=== PATIENT | male | born 1940 | race Caucasian/White ===

== ENCOUNTER 2017-09-27 11:25 | Inpatient (IN) | payer OTHER ==
[~2017-09-27] VITALS: Ht 180.3 cm; Wt 69.5 kg
[~2017-09-27 11:25] MED LIST: ASPIRIN EC81 M1 PO; ATORVASTATIN CA40 MG PO; PANTOPRAZOLE SO40 MG PO; PLAVIX 75MG TAB75 MG PO; SIMVASTATIN40 MG PO
--- NOTE | 2017-09-27 12:12 | ED GENERAL ADULT ---
History of Present Illness General Chief Complaint: General Adult Stated Complaint: RECTAL BLEED Source: patient, old records Exam Limitations: no limitations Vital Signs & Intake/Output Vital Signs & Intake/Output Vital Signs Date Time Temp Pulse Resp B/P B/P Pulse O2 O2 Flow FiO2 Mean Ox Delivery Rate 09/27 1538 98.5 55 20 126/70 98 Room Air 09/27 1428 97.6 49 15 146/65 98 Room Air Room Air 09/27 1226 Room Air Room Air 09/27 1137 96.8 61 18 106/67 97 Room Air Allergies Coded Allergies: amoxicillin (From AUGMENTIN) (Mild, RASH 09/09/15) clavulanic acid (From AUGMENTIN) (Mild, RASH 09/09/15) Reconcile Medications Aspirin (Ecotrin*) 81 MG TABLET.DR 1 TAB PO DAILY HEART HEALTH (Reported) Atorvastatin Calcium 40 MG TABLET 1 TAB PO DAILY CHOLESTEROL (Reported) Clopidogrel Bisulfate (Plavix) 75 MG TABLET 1 TAB PO DAILY BLOOD THINNER ( Reported) Metoprolol Tartrate 25 MG TABLET 1 TAB PO DAILY HEART (Reported) Triage Note: RECEIVED 77 YO MALE SENT TO ED BY DR BROOKE FOR BRIGHT RED BLEEDING PER RECTUM THIS AM. ACCORDING TO REPORT, PT WENT TO THE BATHROOM THIS AND AND FILLED THE TOILET WITH BRIGHT RED BLOOD. PT DID HAVE SUBSEQUENT BOWEL MOVEMENTS THAT WERE [place] IN COLOR. PT SEEN DR BROOKE THIS AND AND WAS QUIAC POSITIVE. PT CURRENTLY ON PLAVIS AND ASA. PT DENIES ABDOMINAL PAIN, WEAKNESS OR DIZZINESS. 5 Triage Nurses Notes Reviewed? yes HPI: Patient woke up at 4:00 this morning feeling like it was bowels. When the patient went to the bathroom just dark red blood came out. No abdominal pain. Patient then went back to bed and then this morning he called his primary care physician who told him to stop his aspirin and Plavix and to come to the emergency department for evaluation. Patient denies any lightheadedness. There is no abdominal pain or abdominal cramping. There is no dysuria. Patient comes in for evaluation. Patient had a colonoscopy in 2013 which showed diverticulosis as well as radiation proctitis. Past History Travel History Traveled to [place] past 21 day No Medical History Any Pertinent Medical History? 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 No Review of Systems Review of Systems Constitutional: Reports: no symptoms. EENTM: Reports: no symptoms. Respiratory: Reports: no symptoms. Cardiovascular: Reports: no symptoms. GI: Reports: see HPI. Genitourinary: Reports: no symptoms. Musculoskeletal: Reports: no symptoms. Skin: Reports: no symptoms. Neurological/Psychological: Reports: no symptoms. Hematologic/Endocrine: Reports: no symptoms. Immunologic/Allergic: Reports: no symptoms. All Other Systems: Reviewed and Negative Physical Exam Physical Exam General Appearance: well developed/nourished, alert, awake Head: atraumatic, normal appearance Eyes: Bilateral: PERRL, EOMI. Ears, Nose, Throat: normal pharynx, normal ENT inspection, hearing grossly normal Neck: normal inspection, supple, full range of motion Respiratory: normal breath sounds, chest non-tender, no respiratory distress, lungs clear Cardiovascular: regular rate/rhythm, normal peripheral pulses Gastrointestinal: normal bowel sounds, soft, non-tender, no organomegaly Rectal: DARK RED BLOOD ON FINGERTIP Back: normal inspection, normal range of motion Extremities: normal inspection, normal capillary refill, normal range of motion, no edema Neurologic/Psych: no motor/sensory deficits, awake, alert, oriented x 3, normal gait, normal mood/affect Skin: intact, normal color, warm/dry Core Measures ACS in differential dx? No CVA/TIA Diagnosis: No Sepsis Present: No Sepsis Focused Exam Completed? No Progress Differential Diagnoses I considered the following diagnoses in my evaluation of the patient: [LOWER GI] Plan of Care: Orders Procedure Date/time Status CBC WITHOUT DIFFERENTIAL 09/28 0600 Active Clear Liquid Diet 09/27 D Active Weight 09/27 1552 Active Vital Signs 09/27 1552 Active Teach/Educate 09/27 155 Active Pain Treatment and Response 09/27 155 Active Nutritional Intake, Monitor 09/27 155 Active Isolation 09/27 155 Active Intake & Output 09/27 155 Active Patient Care Conference 09/27 155 Active Activity/Ambulation 09/27 155 Active Pathway - chart 09/27 1518 Active Patient Data 09/27 1518 Active Code Status 09/27 1518 Active Patient Data 09/27 1359 Active ED Holding Orders 09/27 1358 Active Admit to inpatient 09/27 1358 Active Vital Signs 09/27 1358 Active Code Status 09/27 1358 Complete Intake & Output 09/27 1226 Active MISTAKE 09/27 1212 Active TROPONIN LEVEL 09/27 1212 Complete PARTIAL THROMBOPLASTIN TIME 09/27 1212 Complete PROTHROMBIN TIME 09/27 1212 Complete COMPREHENSIVE METABOLIC PANEL 09/27 1212 Complete CBC WITHOUT DIFFERENTIAL 09/27 1212 Complete EKG 09/27 1212 Active TYPE & SCREEN (NOT X-MATCH) 09/27 1212 Complete VTE Mechanical Prophylaxis 09/27 UNK Active Current Medications Sig/Latonya Start time Last Medication Dose Stop Time Status Admin Acetaminophen 325 MG Q6P PRN 09/27 1515 AC (Tylenol) Laboratory Tests 09/27/17 1223: Anion Gap 7, Estimated GFR > 60, BUN/Creatinine Ratio 21.3, Glucose 80, Calcium 9.4, Total Bilirubin 0.8, AST 25, ALT 30, Alkaline Phosphatase 65, Troponin I < 0.01, Total Protein 6.2 L, Albumin 3.8, Globulin 2.4, Albumin/Globulin Ratio 1.6, PT 12.0, INR 1.10, APTT 27, CBC w Diff NO MAN DIFF REQ, RBC 4.98, MCV 86.2, MCH 29.9, MCHC 34.7, RDW 14.1, MPV 8.9, Gran % 50.6, Lymphocytes % 28.2, Monocytes % 11.5 H, Eosinophils % 9.2 H, Basophils % 0.5, Absolute Granulocytes 2.8, Absolute Lymphocytes 1.5, Absolute Monocytes 0.6, Absolute Eosinophils 0.5, Absolute Basophils 0 Initial ED EKG: NSR, SR WITH LAFB, NOISCHEMICCHANGES Departure Departure Disposition: STILL A PATIENT Condition: Stable Clinical Impression Primary Impression: Lower GI bleed Referrals: Fer Jean MD (PCP/Family) Departure Forms: Customer Survey General Discharge Information Admission Note Spoke With: Sayra Davenport MD Documentation of Exam: Documentation of any treatments & extenuating circumstances including Concerns Regarding Discharge (functional status, medication knowledge or non-compliance, living conditions, etc.) that warrant an admission rather than observation: [ Clear liquids only, GI consultation, serial hematocrits, if he begins to have active bleeding he will need a colonoscopy plus or minus interventional radiology.] Critical Care Note Critical Care Note Critical Care Time: non-applicable
[2017-09-27] MEDS ORDERED: METOPROLOL TART25 M1 PO (12:28)
[2017-09-27] MEDS ORDERED: PLAVIX75 M1 PO (12:30)
[2017-09-27] MEDS ORDERED: ATORVASTATIN CA40 M1 PO (12:30)
[2017-09-27 12:41] LABS: ABSOLUTE BASOPHIL COUNT 0 /CUMM (0.0-0.2); ABSOLUTE EOSINOPHIL COUNT 0.5 /CUMM (0.0-0.7); ABSOLUTE GRANULOCYTE CT 2.8 /CUMM (1.4-6.5); ABSOLUTE LYMPH COUNT 1.5 /CUMM (1.2-3.4); ABSOLUTE MONOCYTE COUNT 0.6 /CUMM (0.10-0.60); BASOPHIL % 0.5 % (0.0-2.0); EOSINOPHIL % 9.2 % (0-5); GRANULOCYTE % 50.6 % (42.2-75.2); MEAN CORPUSCULAR HGB 29.9 PG (27.0-31.0); MEAN CORPUSCULAR HGB CONC 34.7 G/DL (33.0-37.0); MEAN CORPUSCULAR VOLUME 86.2 FL (80.0-94.0); MEAN PLATELET VOLUME 8.9 FL (7.4-10.4); PLATELET COUNT 178 /CUMM (130-400); RBC DISTRIBUTION WIDTH 14.1 % (11.5-14.5); RED BLOOD CELL CT 4.98 /CUMM (4.70-6.10); WHITE BLOOD CELL COUNT 5.5 /CUMM (4.8-10.8)
[2017-09-27 12:46] LABS: PTT 27 SEC (25-37)
--- NOTE | 2017-09-27 14:12 | History & Physical ---
Kraig ESETVEZ,[facility] 09/27/17 1412: General Information and HPI MD Statement: I have seen and personally examined PHAM FOURNIER and documented this H&P. The patient is a 77 year old M who presented with a patient stated chief complaint of []. Source of Information: patient Exam Limitations: no limitations History of Present Illness: The patient is 77-year-old gentleman with past medical history hyperlipidemia, prior history of esophagitis, prostate cancer, GERD, TIA in 2015. [facility] presented [facility] with complaint of Bright great blood per rectum. The patient was in usual state of mental this morning around 4 AM he got up to use the bathroom to urinate and had a bloody bowel movement. Patient described it as bright red blood mixed with small pallets of stool. Then again at 6 AM in the morning he had another episode. He saw his PCP in the morning where he has guaiac-positive. The PCP asked him to hold his aspirin and Plavix and come to [facility] ED for further evaluation. The patient has been evaluated by Dr. Love multiple times in the past. As per patient he had an endoscopy and colonoscopy done last year and as per his information it was within normal limits. He denies any fevers chills, reports no shortness of breath chest pain abdominal pain nausea vomiting. No episode of blood in vomit. There is no history of colon cancer in the family. Patient denies any night sweats however does report a 5 pound weight loss over the past 2 years. However denies any recent weight loss. Patient does not have any sick contacts. He does not report any dizziness or lightheadedness at present. Patient also gives a history of what appears to be angiography done by Dr. Michelle reyes. However he is unsure. He reported that on aspirin and Plavix were started after the incident of TIA in 2015 Allergies/Medications Allergies: Coded Allergies: amoxicillin (From AUGMENTIN) (Mild, RASH 09/09/15) clavulanic acid (From AUGMENTIN) (Mild, RASH 09/09/15) Home Med list Aspirin (Ecotrin*) 81 MG TABLET. 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 Home Who Do You Live With? spouse Services at Home: None Primary Language: Luxembourgish Smoking Status: Former Smoker ETOH Use: denies use Illicit Drug Use: denies illicit drug use Living Will? yes Functional Ability ADLs Independent: dressing, eating, toileting, bathing. Ambulation: independent IADLs Independent: shopping, housework, finances, food prep, telephone, transportation , medication admin. Review of Systems Review of Systems Constitutional: Reports: see HPI. EENTM: Reports: no symptoms. Exam & Diagnostic Data Last 24 Hrs of Vital Signs/I&O Vital Signs Date Time Temp Pulse Resp B/P B/P Pulse O2 O2 Flow FiO2 Mean Ox Delivery Rate 09/27 1538 98.5 55 20 126/70 98 Room Air 09/27 1428 97.6 49 15 146/65 98 Room Air Room Air 09/27 1226 Room Air Room Air 09/27 1137 96.8 61 18 106/67 97 Room Air Intake & Output 09/27 1600 09/27 0800 09/27 0000 Intake Total 0 Output Total Balance 0 Intake, Oral 0 Patient 163 lb Weight Weight Reported by Patient Measurement Method Physical Exam General Appearance Alert, Oriented X3, Cooperative Skin No Rashes Skin Temp/Moisture Exam: Warm/Dry HEENT Atraumatic Cardiovascular Normal S1, Normal S2, No Murmurs Lungs Clear to Auscultation, Normal Air Movement Abdomen Normal Bowel Sounds, Soft, No Tenderness, No Hepatospenomegaly, No Masses Neurological Normal Speech, Strength at 5/5 X4 Ext, Normal Tone, Cranial Nerves 3-12 NL, Reflexes 2+ Extremities No Edema Vascular Normal Pulses Last 24 Hrs of Labs/Aubrey: Laboratory Tests 09/27/17 1223: Anion Gap 7, Estimated GFR > 60, BUN/Creatinine Ratio 21.3, Glucose 80, Calcium 9.4, Total Bilirubin 0.8, AST 25, ALT 30, Alkaline Phosphatase 65, Troponin I < 0.01, Total Protein 6.2 L, Albumin 3.8, Globulin 2.4, Albumin/Globulin Ratio 1.6, PT 12.0, INR 1.10, APTT 27, CBC w Diff NO MAN DIFF REQ, RBC 4.98, MCV 86.2, MCH 29.9, MCHC 34.7, RDW 14.1, MPV 8.9, Gran % 50.6, Lymphocytes % 28.2, Monocytes % 11.5 H, Eosinophils % 9.2 H, Basophils % 0.5, Absolute Granulocytes 2.8, Absolute Lymphocytes 1.5, Absolute Monocytes 0.6, Absolute Eosinophils 0.5, Absolute Basophils 0 Diagnostic Data EKG Results Sinus rhythm QTc 406 heart rate 50 Assessment/Plan Assessment: The patient is 77-year-old gentleman with past medical history hyperlipidemia, prior history of esophagitis, prostate cancer, GERD, TIA in 2014. He presented to [facility] with complaint of Bright great blood per rectum. Vitals on presentation blood pressure on the softer side however was checked with autocuff manual blood pressure reading 130/60. Patient is running bradycardic with heart rates ranging from 40s to 60s. 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 -Admit to general medicine floor -Monitor vitals every shift -CBC in the morning -2 large wide bore IV access -Clear liquid diet -Aspirin Plavix on hold -GI consult placed #Bradycardia Patient's heart rate is running on the lower side. However he is currently asymptomatic. -We will hold metoprolol for now #History of TIA -Aspirin and Plavix on hold for now -Patient wanted his health care coordinator Dr. Martinez to be informed that has been Plavix on hold. Courtesy consult has been placed with Dr. Martinez group #History of HLD Continue atorvastatin #Unsure the cardiac history and why the patient is on metoprolol Cardiology will be able to help us with his cardiac history. #Clear liquid diet/DVT prophylaxis with ALPS only IN SETTING OF GI BLEED/DNR/DNI As Ranked By This Provider Problem List: 1. Lower GI bleed Core Measures/Misc (01/20) Acute Coronary Syndrome ACS Diagnosis: No Congestive Heart Failure Congestive Heart Failure Diagnosis No Cerebrovascular Accident CVA/TIA Diagnosis: No VTE (View Protocol) VTE Risk Factors Age>40 No Mechanical VTE Prophylaxis d/t N/A MechProphylax Ordered No VTE Pharm Prophylaxis d/t Other (GI bleed) Sepsis (View protocol) Sepsis Present: No If YES complete Sepsis Event Note If YES complete Sepsis Event Note Mandi Arias 09/27/17 1527: Core Measures/Misc (01/20) Sepsis (View protocol) If YES complete Sepsis Event Note If YES complete Sepsis Event Note Resident Review Statement Resident Statement: examined this patient, discussed with internet marketing intern Other Findings: Patient is 77 years old with PMH of TIA 2014, HLD, GERD (ulcer found on EGD) came with the chief complain of lower GI bleed. Patient says that when he got up this morning, he felt the urgent need to use the bathroom and had bright red blood mixed with stools. Patient reports that he had never had similar complains before. He reports that he had EGD and colonoscopy done by Dr. Love last year and he was told that everything is normal. Of note, patient has been taking aspirin and Plavix since his TIA in 2014 and this morning when he went to his PCP (Dr. Espino), he was asked to hold it, and come to ER. Labs and vitals as above. Plan: Will admit to GM and monitor closely. His bleeding could be due to his diverticulosis, radiation proctitis, or could be from his old upper GI ulcer. Will get GI on board, Can try omeprazole 20 mg daily, will keep the patient on clear liquid diet. will hold aspirin and Plavix. Code status DNR/DNI dvt ppx alps.
--- NOTE | 2017-09-27 14:49 | Admission Certification ---
Admission Certification Certification Statement - As attending physician, I certify that at the time of - admission, based on clinical presentation, severity of - symptoms, need for further diagnostic testing and - therapeutic interventions, and risk of adverse outcomes - without in-hospital treatment, in my clinical assessment, - this patient requires an acute hospital stay for a minimum - of two nights or longer. I have also considered psychsocial - factors such as support system, advanced age, financial - issues, cognitive issues, and failed out-patient treatments, - past re-admission history, safety of patient, and lack of - compliance as applicable. Specific rationale supporting this admission is: Lower GI bleed
--- NOTE | 2017-09-27 14:56 | PN- Att Addend ---
Attending Addendum Attending Brief Note Patient seen and examined in the emergency room with the medical team. Plan of care discussed with the medical team and the patient. Available lab work and radiology test reports were reviewed. In summary this is 77-year-old male with history of hyperlipidemia, TIA hypertension history of prostate cancer and prior history of esophagitis by endoscopy who presents with the episodes of for bright red blood per rectum since 4 AM this morning. Patient went to see his PCP who confirmed lower GI bleed on exam and sent him to emergency room. Patient denies any recent illnesses any belly pain nausea vomiting or heartburn. Medical History Any Pertinent Medical History? 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 History of MRSA: No History of VRE: No Surgical History Surgical History: non-contributory Psychosocial History Who do you live with Spouse Services at Home None What is your primary language Polish Tobacco Use: Quit >30 days ago ETOH Use: denies use Illicit Drug Use: denies illicit drug use Family History Family History, If Any: BROTHER FH: heart disease FH: myocardial infarction FATHER FH: prostate cancer MOTHER FH: diabetes mellitus Home Med list Aspirin (Ecotrin*) 81 MG TABLET.DR 1 TAB PO DAILY HEART HEALTH (Reported) Atorvastatin Calcium 40 MG TABLET 1 TAB PO DAILY CHOLESTEROL (Reported) Clopidogrel Bisulfate (Plavix) 75 MG TABLET 1 TAB PO DAILY BLOOD THINNER ( Reported) Metoprolol Tartrate 25 MG TABLET 1 TAB PO DAILY HEART (Reported) Exam: General: Patient awake alert oriented without any distress CVS: S1 plus S2 without any murmur or gallops Chest: Few scattered crepitation without any wheeze. There is no respiratory distress. Abdomen: Soft non-tender, bowel sound present, no guarding or rebound NET TRAINER: Awake alert oriented without any focal neuro deficit and follows commands appropriately Extremities: No edema; no clubbing or cyanosis noted Vital Signs Date Time Temp Pulse Resp B/P B/P Pulse O2 O2 Flow FiO2 Mean Ox Delivery Rate 09/27 1428 97.6 49 15 146/65 98 Room Air Room Air 09/27 1226 Room Air Room Air 09/27 1137 96.8 61 18 106/67 97 Room Air Intake & Output 09/27 1600 09/27 0800 05/25 0000 Intake Total 0 Output Total Balance 0 Intake, Oral 0 Patient 162 lb Weight Weight Estimated Measurement Method Laboratory Tests 09/27/17 1223: Anion Gap 7, Estimated GFR > 60, BUN/Creatinine Ratio 21.3, Glucose 80, Calcium 9.4, Total Bilirubin 0.8, AST 25, ALT 30, Alkaline Phosphatase 65, Troponin I < 0.01, Total Protein 6.2 L, Albumin 3.8, Globulin 2.4, Albumin/Globulin Ratio 1.6, PT 12.0, INR 1.10, APTT 27, CBC w Diff NO MAN DIFF REQ, RBC 4.98, MCV 86.2, MCH 29.9, MCHC 34.7, RDW 14.1, MPV 8.9, Gran % 50.6, Lymphocytes % 28.2, Monocytes % 11.5 H, Eosinophils % 9.2 H, Basophils % 0.5, Absolute Granulocytes 2.8, Absolute Lymphocytes 1.5, Absolute Monocytes 0.6, Absolute Eosinophils 0.5, Absolute Basophils 0 Assessment and problem list * Lower GI bleed- prior colonoscopies in 199912/13/2013 has shown focal 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 Patient also takes aspirin and Plavix at this point have contributed to year bleed * History of hypertension * Bradycardia- due to Lopressor * History of prostate cancer Plan * GI consult * Please inform cardiology Dr. Lynn * Hold aspirin and Plavix * Repeat CBC in a.m. * Clear liquids * Hold Lopressor for now given bradycardia; if patient's BP becomes uncontrolled he will benefit from adding lisinopril
[2017-09-27 15:38] VITALS: BP 126/70
--- NOTE | 2017-09-27 18:58 | Cons- Gastroenterology ---
General Information and HPI Consulting Request Date of Consult: 09/27/17 Requested By: Sayra Davenport MD Reason for Consult: Hematochezia Source of Information: patient, electronic medical records Exam Limitations: no limitations History of Present Illness: Patient is a 77-year-old male with past medical history of TIA which was evaluated with angiography by Dr. Martinez. Angiography as well as carotid Dopplers was unrevealing. He is currently taking Plavix and baby aspirin. He was in his usual state of health until the night prior to admission when he was awakened from sleep with urgency for bowel movement. He went to the bathroom and had what he thought was diarrhea but was instead bloody output with little stool. He had 2 subsequent episodes of large-volume hematochezia with premonitory cramping. He had no nausea vomiting or abdominal pain. He had no fever or shaking chills. He is never had an episode like this before. He had no palpitations, symptoms of orthostasis, chest pain or shortness of breath. He did have an EGD and colonoscopy in [address] Deep Love. EGD showed esophagitis and gastric biopsies were negative for H. pylori. 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 Since admission to [facility] he is had no further lower GI bleeding. He is eager to go home. Allergies/Medications Allergies: Coded Allergies: amoxicillin (From AUGMENTIN) (Mild, RASH 09/09/15) clavulanic acid (From AUGMENTIN) (Mild, RASH 09/09/15) Home Med List: Aspirin (Ecotrin*) 81 MG TABLET.DR 1 TAB PO DAILY HEART HEALTH (Reported) Atorvastatin Calcium 40 MG TABLET 1 TAB PO DAILY CHOLESTEROL (Reported) Clopidogrel Bisulfate (Plavix) 75 MG TABLET 1 TAB PO DAILY BLOOD THINNER ( Reported) Metoprolol Tartrate 25 MG TABLET 1 TAB PO DAILY HEART (Reported) Current Medications: Current Medications Sig/Latonya Start time Last Medication Dose Route Stop Time Status Admin Acetaminophen 325 MG Q6P PRN 09/27 1515 AC PO Sodium Chloride 1,000 ML .Q20H 09/27 1515 DC IV Past History Travel History Traveled to [place] past 21 day No Medical History Blood Transfusion Hx: No Neurological: TIA EENT: NONE Cardiovascular: hyperlipidemia Respiratory: NONE Gastrointestinal: GERD Hepatic: NONE Renal: NONE Musculoskeletal: NONE, osteoarthritis Psychiatric: NONE Endocrine: NONE Blood Disorders: NONE Cancer(s): prostate cancer CLOTH TESTER QUALITY/Reproductive: NONE Surgical History Surgical History: non-contributory Family History Relations & Conditions If Any: BROTHER FH: heart disease FH: myocardial infarction FATHER FH: prostate cancer MOTHER FH: diabetes mellitus Psychosocial History Where Do You Live? Home Who Do You Live With? spouse Services at Home: None Primary Language: Estonian Smoking Status: Former Smoker ETOH Use: denies use Illicit Drug Use: denies illicit drug use Living Will? yes Functional Ability ADLs Independent: dressing, eating, toileting, bathing. Ambulation: independent IADLs Independent: shopping, housework, finances, food prep, telephone, transportation , medication admin. Review of Systems Review of Systems Constitutional: Reports: no symptoms. EENTM: Reports: no symptoms. Cardiovascular: Reports: no symptoms. Respiratory: Reports: no symptoms. GI: Reports: see HPI. Genitourinary: Reports: no symptoms. Musculoskeletal: Reports: no symptoms. Skin: Reports: no symptoms. Neurological/Psychological: Reports: no symptoms. Hematologic/Endocrine: Reports: no symptoms. Exam & Diagnostic Data Vital Signs and I&O Vital Signs Date Time Temp Pulse Resp B/P B/P Pulse O2 O2 Flow FiO2 Mean Ox Delivery Rate 09/27 1538 98.5 55 20 126/70 98 Room Air 09/27 1428 97.6 49 15 146/65 98 Room Air Room Air 09/27 1226 Room Air Room Air 09/27 1137 96.8 61 18 106/67 97 Room Air Intake & Output 09/27 1600 09/27 0400 09/26 0400 09/25 0400 Intake Total 0 Output Total Balance 0 Intake, Oral 0 Patient 163 lb Weight Weight Reported by Patient Measurement Method Physical Exam General Appearance: well developed/nourished, no apparent distress, comfortable Head: atraumatic, normal appearance Eyes: Bilateral: normal appearance. Ears, Nose, Throat: hearing grossly normal Neck: normal inspection, supple, full range of motion Respiratory: normal breath sounds, no respiratory distress, lungs clear Cardiovascular: regular rate/rhythm, edema Gastrointestinal: normal bowel sounds, soft, non-tender Neurologic/Psych: awake, alert, oriented x 3 Cranial Nerves: normal hearing, normal speech Skin: intact, normal color, warm/dry Results Pertinent Lab Results: Laboratory Tests 09/27 1223 Chemistry Sodium (137 - 145 mmol/L) 140 Potassium (3.5 - 5.1 mmol/L) 4.1 Chloride (98 - 107 mmol/L) 104 Carbon Dioxide (22 - 30 mmol/L) 30 Anion Gap (5 - 16) 7 BUN (9 - 20 mg/dL) 17 Creatinine (0.7 - 1.2 mg/dL) 0.8 Estimated GFR (>60 ml/min) > 60 BUN/Creatinine Ratio (7 - 25 %) 21.3 Glucose (65 - 99 mg/dL) 80 Calcium (8.4 - 10.2 mg/dL) 9.4 Total Bilirubin (0.2 - 1.3 mg/dL) 0.8 AST (17 - 59 U/L) 25 ALT (21 - 72 U/L) 30 Alkaline Phosphatase (< 127 U/L) 65 Troponin I (<0.11 ng/ml) < 0.01 Total Protein (6.3 - 8.2 g/dL) 6.2 L Albumin (3.5 - 5.0 g/dL) 3.8 Globulin (1.9 - 4.2 gm/dL) 2.4 Albumin/Globulin Ratio (1.1 - 2.2 %) 1.6 Coagulation PT (9.4 - 12.5 SEC) 12.0 INR (0.90 - 1.17) 1.10 APTT (25 - 37 SEC) 27 Hematology CBC w Diff NO MAN DIFF REQ WBC (4.8 - 10.8 /CUMM) 5.5 RBC (4.70 - 6.10 /CUMM) 4.98 Hgb (14.0 - 18.0 G/DL) 14.9 Hct (42 - 52 %) 43.0 MCV (80.0 - 94.0 FL) 86.2 MCH (27.0 - 31.0 PG) 29.9 MCHC (33.0 - 37.0 G/DL) 34.7 RDW (11.5 - 14.5 %) 14.1 Plt Count (130 - 400 /CUMM) 178 MPV (7.4 - 10.4 FL) 8.9 Gran % (42.2 - 75.2 %) 50.6 Lymphocytes % (20.5 - 51.1 %) 28.2 Monocytes % (1.7 - 9.3 %) 11.5 H Eosinophils % (0 - 5 %) 9.2 H Basophils % (0.0 - 2.0 %) 0.5 Absolute Granulocytes (1.4 - 6.5 /CUMM) 2.8 Absolute Lymphocytes (1.2 - 3.4 /CUMM) 1.5 Absolute Monocytes (0.10 - 0.60 /CUMM) 0.6 Absolute Eosinophils (0.0 - 0.7 /CUMM) 0.5 Absolute Basophils (0.0 - 0.2 /CUMM) 0 Assessment/Plan Assessment/Recommendations: ASSESSMENT: 1. Personal history of TIA 2. Long-term use of antiplatelet agent 3. Long-term use of aspirin 4. Hematochezia 5. History of radiation proctitis 6. Personal history of diverticulosis. Bleeding most likely diverticular in origin. RECOMMENDATIONS: 1. Advance diet tonight. 2. Follow H&H. 3. If no further bleeding consider discharge to home. Patient has been instructed if further bleeding to return to ED immediately. 4. Patient will need repeat colonoscopy 5. If recurrent bleeding colonoscopy to be done this admission. Consult Acknowledgment - Thank you for your consult request.
[2017-09-27 21:06] VITALS: BP 120/60
--- NOTE | 2017-09-27 21:27 | Patient Discharge Instructions ---
Discharge Instructions General Discharge Information You were seen/treated for: Bleeding per rectum Special Instructions: Please follow-up with gastroenterology after discharge You will need a colonoscopy done Please return to ED if bleeding continues Diet Continue normal diet: Yes Activity Activity Self Limited: Yes Acute Coronary Syndrome Inclusion Criteria At DC or during hospital stay patient has or had the following: ACS DIAGNOSIS No Discharge Core Measures Meds if any: Prescribed or Continued at Discharge Meds if any: NOT Prescribed or Continued at Discharge Congestive Heart Failure Inclusion Criteria At DC or during hospital stay patient has or had the following: CHF DIAGNOSIS No Discharge Core Measures Meds if any: Prescribed or Continued at Discharge Meds if any: NOT Prescribed or Continued at Discharge Cerebrovascular accident Inclusion Criteria At DC or during hospital stay patient has or had the following: CVA/TIA Diagnosis No Discharge Core Measures Meds if any: Prescribed or Continued at Discharge Meds if any: NOT Prescribed or Continued at Discharge Venous thromboembolism Inclusion Criteria VTE Diagnosis No VTE Type NONE VTE Confirmed by (Test) NONE Discharge Core Measures - Per Current guidelines, there needs to be overlap - treatment for the first 5 days of Warfarin therapy. - If discharged on Warfarin prior to 5 days of - overlap therapy, the patient will need to be - assessed for post discharge needs including - *Post discharge parental anticoagulation - *Warfarin and/or parental anticoagulation education - *Follow up date to check INR post discharge At least 5 days overlap therapy as Inpatient No Meds if any: Prescribed or Continued at Discharge Note: Overlap Therapy is Warfarin and Anticoagulant Meds if any: NOT Prescribed or Continued at Discharge
--- NOTE | 2017-09-28 05:16 | PN- Housestaff ---
Subjective Follow-up For: Lower GI bleed Subjective: Seen and examined. No overnight acute events. Patient was evaluated by GI that was normal blood in bowel movement since admission to the hospital. Review of Systems Constitutional: Reports: see HPI. Objective Last 24 Hrs of Vital Signs/I&O Vital Signs Date Time Temp Pulse Resp B/P B/P Pulse O2 O2 Flow FiO2 Mean Ox Delivery Rate 09/28 0612 97.6 52 20 116/78 98 Room Air 09/27 2106 97.9 50 20 120/60 97 Room Air 09/27 1538 98.5 55 20 126/70 98 Room Air 09/27 1428 97.6 49 15 146/65 98 Room Air Room Air 09/27 1226 Room Air Room Air 09/27 1137 96.8 61 18 106/67 97 Room Air Intake & Output 09/28 0800 09/28 0000 09/27 1600 Intake Total 0 Output Total Balance 0 Intake, Oral 0 Patient 153 lb 163 lb Weight Weight Reported by Patient Measurement Method Physical Exam General Appearance: Alert, Oriented X3, Cooperative Cardiovascular: Normal S1, Normal S2 Lungs: Clear to Auscultation Abdomen: Normal Bowel Sounds, Soft, No Tenderness Neurological: Normal Speech Current Medications: Current Medications Sig/Latonya Start time Last Medication Dose Route Stop Time Status Admin Acetaminophen 325 MG Q6P PRN 09/27 1515 AC PO Sodium Chloride 1,000 ML .Q20H 09/27 1515 DC IV Last 24 Hrs of Lab/Aubrey Results Last 24 Hrs of Labs/Mics: Laboratory Tests 09/28/17 0611: CBC w Diff Pending, WBC Pending, RBC Pending, Hgb Pending, Hct Pending, MCV Pending, MCH Pending, MCHC Pending, RDW Pending, Plt Count Pending, MPV Pending 09/27/17 1223: Anion Gap 7, Estimated GFR > 60, BUN/Creatinine Ratio 21.3, Glucose 80, Calcium 9.4, Total Bilirubin 0.8, AST 25, ALT 30, Alkaline Phosphatase 65, Troponin I < 0.01, Total Protein 6.2 L, Albumin 3.8, Globulin 2.4, Albumin/Globulin Ratio 1.6, PT 12.0, INR 1.10, APTT 27, CBC w Diff NO MAN DIFF REQ, RBC 4.98, MCV 86.2, MCH 29.9, MCHC 34.7, RDW 14.1, MPV 8.9, Gran % 50.6, Lymphocytes % 28.2, Monocytes % 11.5 H, Eosinophils % 9.2 H, Basophils % 0.5, Absolute Granulocytes 2.8, Absolute Lymphocytes 1.5, Absolute Monocytes 0.6, Absolute Eosinophils 0.5, Absolute Basophils 0 Assessment/Plan Assessment: The patient is 77-year-old gentleman with past medical history hyperlipidemia, prior history of esophagitis, prostate cancer, GERD, TIA in 2014. He presented to [facility] ED with complaint of Bright great blood per rectum. The patient is being treated and evaluated for following conditions #Lower GI Bleed Patient has been evaluated by GI Dr. Costa. Bleeding is most likely diverticular in origin He had an EGD and colonoscopy in [address] Deep Love. EGD showed esophagitis and gastric biopsies were negative for H. pylori. 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 -Monitor vitals every shift -2 large wide bore IV access -Aspirin Plavix on hold -Will follow up a H&H if there is no bleeding episodes patient can be discharged home with the plan of outpatient colonoscopy. -Diet was advanced to full liquids, overnight his diet can be further advanced and see how he tolerates it. #Bradycardia Patient's heart rate is running on the lower side. However he is currently asymptomatic. -We will hold metoprolol for now #History of TIA -Aspirin and Plavix on hold for now -Patient wanted his dance choreographer Dr. Martinez to be informed that has been Plavix on hold. Courtesy consult has been placed with Dr. Martinez group -If H/H remains stable consider resuming aspirin and Plavix on discharge after discussing with cardiology #History of HLD Continue atorvastatin #Unsure the cardiac history and why the patient is on metoprolol Cardiology will be able to help us with his cardiac history. #Full liquid diet/DVT prophylaxis with ALPS only IN SETTING OF GI BLEED/DNR/DNI Problem List: 1. Lower GI bleed Pain Ratin Pain Location: n/a Pain Goal: Pain 4 or less Pain Plan: prn Tomorrow's Labs & Rationales: cbc
[2017-09-28 06:12] VITALS: BP 116/78
[2017-09-28 08:30] LABS: ABSOLUTE BASOPHIL COUNT 0 /CUMM (0.0-0.2); ABSOLUTE EOSINOPHIL COUNT 0.6 /CUMM (0.0-0.7); ABSOLUTE GRANULOCYTE CT 2.5 /CUMM (1.4-6.5); ABSOLUTE LYMPH COUNT 1.7 /CUMM (1.2-3.4); ABSOLUTE MONOCYTE COUNT 0.4 /CUMM (0.10-0.60); BASOPHIL % 0.9 % (0.0-2.0); EOSINOPHIL % 10.6 % (0-5); GRANULOCYTE % 47.7 % (42.2-75.2); HEMATOCRIT 42.5 % (42-52); MEAN CORPUSCULAR HGB 29.7 PG (27.0-31.0); MEAN CORPUSCULAR HGB CONC 33.9 G/DL (33.0-37.0); MEAN CORPUSCULAR VOLUME 87.6 FL (80.0-94.0); MEAN PLATELET VOLUME 9.1 FL (7.4-10.4); PLATELET COUNT 169 /CUMM (130-400); RBC DISTRIBUTION WIDTH 13.9 % (11.5-14.5); RED BLOOD CELL CT 4.85 /CUMM (4.70-6.10); WHITE BLOOD CELL COUNT 5.2 /CUMM (4.8-10.8)
[2017-09-28] MEDS ORDERED: OMEPRAZOLE40 M1 PO (09:46)
--- NOTE | 2017-09-28 12:13 | PN- Att Addend ---
Attending Addendum Attending Brief Note Patient seen and examined. Plan of care discussed with the medical team and the patient. Available lab work and radiology test reports were reviewed. Patient reports that he had the streaking red blood around the ball motion today. He denies any nausea vomiting or abdominal pain fever chills or difficulty breathing. He does not report any dizziness or lightheadedness. He was go home today Exam: General: Patient awake alert oriented without any distress CVS: S1 plus S2 without any murmur or gallops Chest: Few scattered crepitation without any wheeze. There is no respiratory distress. Abdomen: Soft non-tender, bowel sound present, no guarding or rebound MARKET DEVELOPMENT MANAGER: Awake alert oriented without any focal neuro deficit and follows commands appropriately Extremities: No edema; no clubbing or cyanosis noted Assessment and problem list * Lower GI bleed- prior colonoscopies in 199912/13/2013 has shown focal 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 Patient also takes aspirin and Plavix at this point have contributed to year bleed * History of hypertension * Bradycardia- due to Lopressor * History of prostate cancer Plan * GI consult note reviewed * Upon discharge and resume aspirin * Patient will continue to hold Lopressor and Plavix at this point * Patient follow as outpatient with Dr. Love, Dr. Martinez and Dr. Altamirano * Patient was told to return to ED if he develops severe bleeding and to hold aspirin at that point * Patient clinically stable for discharge home today Current Medications Sig/Latonya Start time Last Medication Dose Route Stop Time Status Admin Acetaminophen 325 MG Q6P PRN 09/27 1515 DCD PO Sodium Chloride 1,000 ML .Q20H 09/27 1515 DC IV Laboratory Tests 09/28/17 0611: CBC w Diff NO MAN DIFF REQ, RBC 4.85, MCV 87.6, MCH 29.7, MCHC 33.9, RDW 13.9, MPV 9.1, Gran % 47.7, Lymphocytes % 33.2, Monocytes % 7.6, Eosinophils % 10.6 H , Basophils % 0.9, Absolute Granulocytes 2.5, Absolute Lymphocytes 1.7, Absolute Monocytes 0.4, Absolute Eosinophils 0.6, Absolute Basophils 0 09/27/17 1223: Anion Gap 7, Estimated GFR > 60, BUN/Creatinine Ratio 21.3, Glucose 80, Calcium 9.4, Total Bilirubin 0.8, AST 25, ALT 30, Alkaline Phosphatase 65, Troponin I < 0.01, Total Protein 6.2 L, Albumin 3.8, Globulin 2.4, Albumin/Globulin Ratio 1.6, PT 12.0, INR 1.10, APTT 27, CBC w Diff NO MAN DIFF REQ, RBC 4.98, MCV 86.2, MCH 29.9, MCHC 34.7, RDW 14.1, MPV 8.9, Gran % 50.6, Lymphocytes % 28.2, Monocytes % 11.5 H, Eosinophils % 9.2 H, Basophils % 0.5, Absolute Granulocytes 2.8, Absolute Lymphocytes 1.5, Absolute Monocytes 0.6, Absolute Eosinophils 0.5, Absolute Basophils 0 Vital Signs Date Time Temp Pulse Resp B/P B/P Pulse O2 O2 Flow FiO2 Mean Ox Delivery Rate 09/28 0612 97.6 52 20 116/78 98 Room Air 09/27 2106 97.9 50 20 120/60 97 Room Air 09/27 1538 98.5 55 20 126/70 98 Room Air 09/27 1428 97.6 49 15 146/65 98 Room Air Room Air 09/27 1226 Room Air Room Air Intake & Output 09/28 1600 09/28 0800 09/28 0000 Intake Total Output Total Balance Number 0 Bowel Movements Patient 153 lb Weight Total time spent in preparation for discharge plan, patient education, and CMR preparation was 35 minutes.
--- NOTE | 2017-10-01 09:19 | Discharge Summary ---
Visit Information Visit Dates Admission Date: 09/27/17 Discharge Date: 09/28/17 Hospital Course Course Attending Physician: Terrance Rodriguez MD Primary Care Physician: Miranda ESTEVEZ,Fer Renae Hospital Course: The patient is 77-year-old gentleman with past medical history hyperlipidemia, prior history of esophagitis, prostate cancer, GERD, TIA in 2014. He presented to [place] ED with complaint of Bright red blood per rectum x 2 episodes. Patient was evaluated by his primary care doctor earlier before presentation to ED who suggested the patient to go to [facility] and hold aspirin and Plavix. When he presented his blood pressure was running on the softer side however the readings were taken from [employer], the manual blood pressure reading was 130/60 and he was also running bradycardic in 40s to 50s Patient's admission labs CBC and BP were completely unremarkable. He had an EGD and colonoscopy in 2017 done by Adalberto Love MD EGD showed esophagitis and gastric biopsies were negative for H. pylori. 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 Patient was admitted to general medicine floor.The differentials at that point included diverticular bleed, internal hemorrhoids, radiation proctitis secondary to prostate cancer radiation, colorectal malignancy. The patient was evaluated by gastroenterology services Dr. Green who believed the source of GI bleed was most likely diverticular in origin. Patient's H&H remained stable and he did not have any bloody bowel movements since admission. Hence there was no emergent colonoscopy done. His diet was advanced from full liquids to a normal diet which she tolerated well. He was deemed medically stable for discharge -The patient is being discharged with instruction to follow-up with Dr. 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 Shreya barragan and has been extensively counseled for an outpatient follow-up regarding metoprolol and Plavix Atorvastatin was continued. DVT prophylaxis was achieved with Alps only. He was DNR/DNI during his stay Allergies: Coded Allergies: amoxicillin (From AUGMENTIN) (Mild, RASH 09/09/15) clavulanic acid (From AUGMENTIN) (Mild, RASH 09/09/15) Disposition Summary Disposition Principal Diagnosis: Diverticular bleed Additional Diagnosis: Plavix on hold patient has history of TIA Bradycardia Discharge Disposition: home or self care Discharge Instructions General Discharge Information Code Status: Do Not Resucitate/Intubat Patient's Diet: As tolerated Patient's Activity: As tolerated Follow-Up Instructions/Appts: Patient will require follow-up with GI, cardiology and primary care doctor Medications at Discharge Discharge Medications: Stop taking the following medications: Metoprolol Tartrate (Metoprolol Tartrate) 25 MG TABLET ORAL DAILY Qty = 90 Clopidogrel Bisulfate (Plavix) 75 MG TABLET ORAL DAILY Continue taking these medications: Aspirin (Ecotrin*) 81 MG TABLET.DR 1 Tablet ORAL DAILY Atorvastatin Calcium (Atorvastatin Calcium) 40 MG TABLET 1 Tablet ORAL DAILY Start taking the following new medications: Omeprazole (Omeprazole) 40 MG CAPSULE.DR 1 Capsule ORAL DAILY Qty = 30 No Refills Copies To: Destiney ESTEVEZ,Delbert Melendez; Kate ESTEVEZ,Adalberto Araya; Miranda ESTEVEZ,Fer Renae
== END 2017-09-28 11:02 | DRG 379 ==
LOC: ERH 11:25 → ERHI 13:58 → 2NB 13:58 → ENRESERV 14:15 → ENTRNSPT 14:34 → EDTRNSPTSTS 14:39 → 2NB 14:56 → CMPTRNSPT 15:08 → 2NB 09-28 11:02
PROVIDERS: Emergency Medicine; Internal Medicine
DX: K57.31 Diverticulosis of large intestine without perforation or abscess with bleeding (principal); R00.1 Bradycardia, unspecified; E78.5 Hyperlipidemia, unspecified; Z79.82 Long term (current) use of aspirin; Z85.46 Personal history of malignant neoplasm of prostate; K21.9 Gastro-esophageal reflux disease without esophagitis; Z86.73 Personal history of transient ischemic attack (TIA), and cerebral infarction without residual deficits; Z87.891 Personal history of nicotine dependence
CPT/HCPCS: 2NBSP; 36592; 93005; 93010